=== PATIENT | female | born 1985 | race African-American/Black ===

== ENCOUNTER 2018-01-06 16:58 | Outpatient (CLI) | payer MEDICAID ==
[2018-01-06 19:37] VITALS: BP 98/51
== END 2018-01-06 20:13 | disposition home or self-care (01) ==
LOC: TRG 16:58
PROVIDERS: ATTEND Obstetrics & Gynecology
DX: O47.1 False labor at or after 37 completed weeks of gestation (principal); Z3A.39 39 weeks gestation of pregnancy
CPT/HCPCS: 59025